=== PATIENT | female | born 1990 | race Hispanic/Latino ===

== ENCOUNTER 2019-08-08 22:52 | Inpatient (IN) | payer OTHER ==
[~2019-08-08 22:52] MED LIST: Bupivacaine HCl 0.5%/Epinephrine 1:200,000/PF 30 ml Vial ONE
[2019-08-08] MEDS ORDERED: Lactated Ringer's 1,000 ML IV PRN (22:53)
[2019-08-08] MEDS ORDERED: Ondansetron PF 4 MG/2 ML Vial IVP PRN (22:53)
[2019-08-08] MEDS ORDERED: Methylergonovine 0.2 MG/ML VIAL IM PRN (22:53)
[2019-08-08] MEDS ORDERED: NS / Oxytocin 40 units/1000ml 1,000 ML IV PRN (22:53)
[2019-08-08] MEDS ORDERED: Misoprostol 200 MCG TAB PR PRN (22:53)
[2019-08-08] MEDS ORDERED: Diphenoxylate HCl/Atropine Tablet PO PRN ×2 (22:53)
[2019-08-08] MEDS ORDERED: Ibuprofen 800 MG TAB PO PRN (22:53)
[2019-08-08] MEDS ORDERED: Lidocaine 1% (PF) 30 ML VIAL SC PRN (22:53)
[2019-08-08] MEDS ORDERED: hydrALAZINE 20 MG/ML VIAL SLOW IVP PRN (22:53)
[2019-08-08] MEDS ORDERED: Promethazine HCl 25 MG/ML VIAL IM PRN (22:53)
[2019-08-08] MEDS ORDERED: HYDROcodone/Acetaminophen 5/325 mg Tablet PO PRN ×2 (22:53)
[2019-08-08] MEDS ORDERED: Carboprost 250 MCG/ML AMP IM PRN (22:53)
[2019-08-08 23:40] VITALS: BMI 24.9
[2019-08-08 23:53] LABS: Hemoglobin 12.4 g/dL (12.0-16.0); Mean Corpuscular HGB CONC 34.7 g/dL (32.0-36.0); Mean Corpuscular Volume 86.7 fL (78.0-98.0); Mean Platelet Volume 9.9 fL (7.4-10.4); Platelet Count 163 thou/uL (130-400); RBC Distribution Width 15.7 % (11.5-14.5); Red Blood Cell (RBC) Count 4.13 mill/uL (4.20-5.40)
[2019-08-09 00:30] LABS: Syphilis Antibody Nonreactive (Nonreactive); Syphilis Antibody Index 0.06 S/CO (<1.00 Non-Reactive)
[2019-08-09 01:41] LABS: HBSAg Index 0.41 S/CO (0-0.99); Hep B Surf Ag NonReactive S/CO (NonReactive)
[2019-08-09] MEDS ORDERED: Fentanyl 4 mcg/Bup 0.1% Cadd 100 ML ONE (03:05)
[2019-08-09] MEDS ORDERED: ePHEDrine/0.9% NaCl/PF SYRINGE 50 mg/10 ml SLOW IVP PRN (03:45)
[2019-08-09] MEDS ORDERED: Naloxone HCl 0.4 mg/ml Vial IVP PRN ×2 (03:45)
[2019-08-09] MEDS ORDERED: Fentanyl 4 mcg/Bupivacaine 0.1% Cassette 100 ML EPIDURAL SCH (03:45)
[2019-08-09] MEDS ORDERED: Acetaminophen 325 MG TAB PO PRN (03:45)
[2019-08-09] MEDS ORDERED: Lactated Ringer's 500 ML IV PRN (03:45)
[2019-08-09] MEDS ORDERED: diphenhydrAMINE 50 MG/ML VIAL IVP PRN (03:45)
[2019-08-09] MEDS ORDERED: Communication Order-Pharmacy FS SCH (03:45)
[2019-08-09] MEDS ORDERED: Promethazine HCl 25 MG/ML VIAL IM PRN (03:45)
[2019-08-09] MEDS ORDERED: Ondansetron PF 4 MG/2 ML Vial IVP PRN (03:45)
--- NOTE | 2019-08-09 04:48 | PDOC.LDHP ---
Labor and Delivery H&P Chief complaint: contractions HPI: Patient started having contractions at 1500 on 08/08/19. Denies SROM , VB. + FM. Current gestational age (weeks): 41 (5 days) Due date: 07/27/19 Dating criteria: last menstrual period Grav: 4 Para: 3 Current complications: other (Postdates) Current medications: pre-donna vitamins Allergies/Adverse Reactions: Allergies Allergy/AdvReac Type Severity Reaction Status Date / Time No Known Allergies Allergy Verified 08/08/19 23:32 - Physical Exam Vital signs reviewed and normal: yes General: breathing through contractions Lungs: nonlabored breathing Abdomen: gravid FHT: category 1 - Vaginal Exam cm dilated: 5 Effacement: 90% Station: -2 - OB Labs Blood type: O RH: positive Antibody Screen: negative HIV: negative RPR: negative HEPSAg: negative 1 hour GCT: negative GBS: negative Rubella: immune - Assessment L&D Assessment: term patient in labor - Plan Plan: admit to L&D
--- NOTE | 2019-08-09 04:56 | PDOC.OPDEL ---
OB Operative/Delivery Note Delivery Dr/Surgeon: Kimberly Montiel Pre-Delivery Diagnosis: active labor Procedure/Post Delivery Dx: spontaneous vaginal delivery Weeks gestation: 41 Anesthesia: epidural - Additional Findings/Plan Placenta delivered: spontaneous Repaired Obstetrical Laceration: none Estimated blood loss: 85mL Post delivery plan: routine recovery
[2019-08-09] MEDS ORDERED: Milk Of Magnesia 30 ML UDCUP PO PRN (06:56)
[2019-08-09] MEDS ORDERED: HYDROcodone/Acetaminophen 5/325 mg Tablet PO PRN ×2 (06:56)
[2019-08-09] MEDS ORDERED: hydrALAZINE 20 MG/ML VIAL SLOW IVP PRN (06:56)
[2019-08-09] MEDS ORDERED: NS / Oxytocin 40 units/1000ml 1,000 ML IV SCH (06:56)
[2019-08-09] MEDS ORDERED: Bisacodyl 10 MG SUPP PR PRN (06:56)
[2019-08-09] MEDS ORDERED: Methylergonovine 0.2 MG/ML VIAL IM PRN (06:56)
[2019-08-09] MEDS ORDERED: Benzocaine-Menthol 82.5 ML CAN TOP PRN (06:56)
[2019-08-09] MEDS ORDERED: Adacel (T-DAP) 0.5 ML SYRINGE IM ONE (09:00)
[2019-08-09] MEDS: Ferrous Sulfate 325 MG TAB PO SCH ×2 (09:28→16:52)
[2019-08-09] MEDS: Docusate Calcium (SURFAK) 240 MG CAP PO SCH ×2 (09:32→21:18)
[2019-08-09] MEDS: Prenatal Vitamin 1 TAB PO SCH (09:32)
[2019-08-09] MEDS: Ibuprofen 800 MG TAB PO SCH ×2 (13:54→21:18)
[2019-08-10] MEDS: Ibuprofen 800 MG TAB PO SCH ×3 (05:56→21:15)
[2019-08-10] MEDS: Ferrous Sulfate 325 MG TAB PO SCH ×2 (09:19→17:08)
[2019-08-10] MEDS: Prenatal Vitamin 1 TAB PO SCH (09:19)
[2019-08-10] MEDS: Docusate Calcium (SURFAK) 240 MG CAP PO SCH ×2 (09:19→21:15)
[2019-08-10] MEDS ORDERED: Lanolin Ointment 7 GM TUBE TOP PRN (20:45)
[2019-08-11] MEDS: Ibuprofen 800 MG TAB PO SCH ×2 (05:58→13:34)
[2019-08-11] MEDS: Ferrous Sulfate 325 MG TAB PO SCH ×2 (07:30→18:11)
[2019-08-11 08:29] VITALS: BP 119/77; TEMP 97.6
[2019-08-11] MEDS: Prenatal Vitamin 1 TAB PO SCH (10:19)
[2019-08-11] MEDS: Docusate Calcium (SURFAK) 240 MG CAP PO SCH (10:19)
--- NOTE | 2019-08-11 15:45 | PDOC.PP ---
Post Progress Note Post Day #: 2 Subjective: Patient is doing well. Baby is under andie lights, She is but did have to give one bottle of formula per the order. She woul dlike to b ed and breakfast PO intake tolerated: yes Flatus: yes Ambulation: yes Vital Signs (12 hours) Temp Pulse Resp BP Pulse Ox 08/11/19 08:29 97.6 F 68 20 119/77 99 Weight Weight 145 lb - Physical Examination General: NAD Respiratory: non-labored breathing Abdominal: lochia (minimal) Extremities: negative homans (B) Neurological: no gross focal deficits Psychiatric: A&Ox3, normal affect Result Diagrams: 08/08/19 23:44 Additional Labs: Post Labs Blood Type O POSITIVE 08/08/19 23:44 Hep Bs Antigen NonReactive S/CO (NonReactive) 08/08/19 23:44 (1) (spontaneous vaginal delivery) Code(s): O80 - ENCOUNTER FOR FULL-TERM UNCOMPLICATED DELIVERY Status: Acute - Assessment/Plan A; g4 now p4 s/p P; discharge home today
== END 2019-08-11 18:18 | disposition home or self-care (01) | DRG 807 ==
LOC: L&D-LIB 22:52 → L&D 08-09 04:12 → 3SW 08-09 08:40
PROVIDERS: ADMIT Obstetrics & Gynecology; ATTEND Obstetrics & Gynecology
PROC: 10E0XZZ Delivery of Products of Conception, External Approach (ICD-10-PCS; principal; 2019-08-09)
DX: O48.0 Post-term pregnancy (principal); Z37.0 Single live birth; Z3A.41 41 weeks gestation of pregnancy
CPT/HCPCS: 36415; 51702; 85027; 86780; 86850; 86900; 86901; 87340; 99285; J0670